=== PATIENT | female | born 1965 | race Caucasian/White ===

== ENCOUNTER 2017-07-31 18:32 | Emergency (ER) | payer BC ==
[2017-07-31] MEDS ORDERED: HYDROCODONE/APAP 7.5/325MG TABLET PO ONE ×2 (18:51→19:48)
--- NOTE | 2017-07-31 18:55 | Emergency Department Record ---
History of Present Illness - General Chief Complaint: Ankle/Foot Injury Stated Complaint: RT FOOT INJURY Time Seen by Provider: 07/31/17 18:48 Source: Patient, Family Mode of Arrival: Wheelchair Limitations: No limitations - History of Present Illness Initial Comments: 52 yo female presents with a right fool injury. She was running up stairs and tripped injuring the foot. No gross deformity. No other injury. No achilles or ankle pain. No numbness or tingling. No prior surgery on foot in the past. MD Complaint: Foot injury Onset/Timin -: Minutes(s) Injury: Foot: Right Type of Injury: Other Place: Home Severity scale (1-10): 10 Improves With: Nothing Worsens With: Movement, Palpation, Weight bearing Context: Running, Other Associated Symptoms: Unable to bear weight - Related Data Home Medications Medication Instructions Recorded Confirmed Last Taken Control 07/31/17 Unknown Previous Rx's Medication Instructions Recorded Hydrocodone/Acetaminophen [Moody 1 each PO Q6H #25 tablet 07/31/17 7.5-325 Tablet] Ondansetron [Zofran Odt] 4 mg PO NOW #15 tab.rapdis 07/31/17 Allergies Allergy/AdvReac Type Severity Reaction Status Date / Time diazepam [From Valium] Allergy BEHAVIORAL Verified 07/31/17 18:51 CHANGES morphine Allergy BEHAVIORAL Verified 07/31/17 18:51 CHANGES promethazine [From Phenergan] Allergy BEHAVIORAL Verified 07/31/17 18:51 CHANGES Travel Screening - Travel/Exposure Within Last 30 Days Have you traveled within the last 30 days?: No Review of Systems Constitutional: Denies: Chills, Fever, Weakness Eyes: Denies: Eye discharge ENT: Denies: Congestion, Throat pain Respiratory: Denies: Cough, Dyspnea Cardiovascular: Denies: Chest pain, Syncope Endocrine: Denies: Fatigue Gastrointestinal: Denies: Abdominal pain, Diarrhea, Nausea, Vomiting Genitourinary: Denies: Dysuria, Urgency Musculoskeletal: Reports: As per HPI, Arthralgia, Joint swelling. Denies: Back pain, Myalgia, Neck pain Skin: Denies: Bruising, Change in color, Rash Neurological: Denies: Headache, Numbness, Tremors, Weakness Psychiatric: Denies: Anxiety Hematological/Lymphatic: Denies: Blood Clots, Easy bleeding, Easy bruising, Swollen glands Past Medical History - SOCIAL HISTORY Smoking Status: Never smoker Alcohol Use: None Drug Use: None - RESPIRATORY Hx Respiratory Disorders: No - CARDIOVASCULAR Hx Cardio Disorders: No - NEURO Hx Neuro Disorders: No - GI Hx GI Disorders: No - Hx Genitourinary Disorders: No - ENDOCRINE Hx Endocrine Disorders: No - MUSCULOSKELETAL Hx Musculoskeletal Disorders: No - PSYCH Hx Psych Problems: No - HEMATOLOGY/ONCOLOGY Hx Hematology/Oncology Disorders: No Family Medical History Any Significant Family History?: No Physical Exam - General General Appearance: Alert, Oriented x3, Cooperative, No acute distress Limitations: No limitations - Head Head exam: Normal inspection - Eye Eye exam: Normal appearance, PERRL - ENT ENT exam: Normal exam Ear exam: Normal external inspection Nasal Exam: Normal inspection Mouth exam: Normal external inspection - Neck Neck exam: Normal inspection - Cardiovascular Cardiovascular Exam: Regular rate, Normal rhythm, Normal heart sounds Peripheral Pulses: 2+: Dorsalis Pedis (R) - Rectal Rectal exam: Deferred - exam: Deferred - Extremities Extremities exam: Normal inspection, Normal capillary refill, Tenderness. negative: Calf tenderness, Full ROM, Pedal edema Image of Feet: 1 - tender lateral foot, intact skin, intact achilles, intact, no ankle tenderness, no knee or hip tenderness. - Back Back exam: Reports: Full ROM. Denies: CVA tenderness (R), CVA tenderness (L), Tenderness - Neurological Neurological exam: Alert, Oriented X3. negative: Motor sensory deficit - Psychiatric Psychiatric exam: Normal affect, Normal mood - Skin Skin exam: Dry, Intact, Normal color, Warm. negative: Abrasion, Cyanosis, Erythema Course Vital Signs 07/31/17 18:45 Temperature 99.5 F Pulse Rate 85 Respiratory 20 Rate Blood Pressure 130/76 Pulse Ox 96 - Reevaluation(s) Reevaluation #1: 07/31/17 19:28 The XR was reviewed The patient has a 5th MT fracture She reports she has crutches She will be placed in a [employer] boot with an ortho referral. Disposition Disposition: Discharge Clinical Impression: Fracture of 5th metatarsal Qualifiers: Encounter type: initial encounter Fracture type: closed Fracture alignment: displaced Laterality: right Qualified Code(s): S92.351A - Displaced fracture of fifth metatarsal bone, right foot, initial encounter for closed fracture Disposition: Home, Self-Care Condition: (1) Good Instructions: Foot Fracture in Adults (ED) Additional Instructions: No weight bearing or walking on the boot Call the orthopedist for follow up the first of the week for your foot fracture. You may remove the boot to ice the foot but no weight bearing Prescriptions: Hydrocodone/Acetaminophen [Moody 7.5-325 Tablet] 1 each PO Q6H #25 tablet Ondansetron [Zofran Odt] 4 mg PO NOW #15 tab.rapdis Referrals: MAMADOU YAP [DOCTOR OF OSTEOPATH] - [facility] [Provider Group] Forms: Patient Portal Access Time of Disposition: 19:29 Quality - Quality Measures Quality Measures: N/A - Blood Pressure Screening Does Patient Have Any of the Following: No Blood Pressure Classification: Pre-Hypertensive BP Reading Systolic Measurement: 130 Diastolic Measurement: 76 Screening for High Blood Pressure: < Pre-Hypertensive BP, F/U Documented > [ [id number]] Pre-Hypertensive Follow-up Interventions: Referral to alternative/primary care provider.
[2017-07-31] MEDS ORDERED: ONDANSETRON 4 MG ODT TABLET SL ONE (19:48)
--- NOTE | 2017-08-01 15:33 | RADIOLOGY REPORT ---
DATE: 07/31/2017. EXAM: RIGHT FOOT. HISTORY: Injury. TECHNIQUE: Three views of the right foot were performed. FINDINGS: There is an oblique displaced fracture deformity of the fifth metatarsal bone. Underlying Osteopenia. The remainder of the osseous structures are intact. IMPRESSION: OBLIQUE FRACTURE DEFORMITY OF THE FIFTH METATARSAL BONE. JOB NUMBER: [id number] MTDD
== END 2017-07-31 20:06 | disposition home or self-care (01) ==
LOC: ER 18:32
DX: S92.351A Displaced fracture of fifth metatarsal bone, right foot, initial encounter for closed fracture (principal); W18.49XA Other slipping, tripping and stumbling without falling, initial encounter; Y92.009 Unspecified place in unspecified non-institutional (private) residence as the place of occurrence of the external cause
CPT/HCPCS: 99283